=== PATIENT | male | born 1935 | race Caucasian/White ===

== ENCOUNTER 2018-04-18 11:19 | Outpatient (CLI) | payer MEDICARE, OTHER ==
[~2018-04-18] VITALS: Ht 185.4 cm; Wt 99.5 kg
--- NOTE | ~2018-04-18 | HEMODYNAMI ---
PATIENT:GIOVANNI PEPE MEDICAL RECORD: [id number] : 39 LOCATION:[facility] ADMISSION DATE: 04/18/18 Generatedon:04/18/201815:36 Patient name: GIOVANNI PEPE Patient #: [id number] SSN: DO B: 1935 Date of study: 04/18/2018 Page: Of Hemodynamic Procedure Report Patient Data Patient Demographics Procedure consent was obtained First Name: GIOVANNI Gender: Male Last Name: AFSHIN : 1935 Patient #: [id number] Age: 83 year(s) Race: Unknown Additional ID: [id number] Contact details [address]: [address] [place] [address] State: [place] City: [place] Zip code: [address] Admission Admission Data Admission Date: 04/18/2018 Admission Time: 11:19 Admit Source: Other Height (in.): 72 BSA: 2.24 (m2) Height (cm.): 182.88 BMI: 30.38 (kg/m2) Weight (lbs.): 224 Weight (kg.): 101.6 Procedure Procedure Types Cath Procedure Diagnostic Procedure [facility] Coronaries only Aortic Root Angiography Procedure Description Procedure Date Procedure Date: 04/18/2018 Procedure Start Time: 15:15 Procedure End Time: 15:34 Procedure Staff Name Function Tavares Garza MD Performing Physician Nereida Mendoza RN Nurse Evens Griggs RT Monitor Shailesh Hanley RN Nurse Candelario Chowdhury RT Monitor Ira Ennis RT Scrub Procedure Data Cath Procedure Fluoroscopy Diagnostic fluoroscopy Total fluoroscopy Time: 4.6 time: 4.6 min min Diagnostic fluoroscopy Total fluoroscopy dose: 841 dose: 841 mGy mGy Contrast Material Contrast Material Type Amount (ml) Isovue 300 86 Entry Location Entry Primary Successful Side Size Upsize Upsize Entry Closure Succes sful Closure Location (Fr) 1 (Fr) 2 (Fr) Remarks Device Remarks Femoral Right 5 Fr Exoseal artery Estimated blood loss: 5 ml Diagnostic catheters Device Type Used For End Catheter Placement MULTIPACK JL 4.0 5Fr Procedure catheter DIAGNOSTIC JL 5 5Fr Procedure catheter ([id number]) MULTIPACK 3DRC 5Fr Procedure catheter MULTIPACK Pigtail 5 Fr Procedure catheter Procedure Complications No complications Procedure Medications Medication Administration Route Dosage Oxygen NC 2 l/min Heparin Flush Bag added to field 2 bags (1000units/500ml NS) 0.9% NaCl I.V. 100 ml/hr Fentanyl I.V. 50 mcg Versed I.V. 1 mg Fentanyl I.V. 50 mcg Versed I.V. 1 mg Hemodynamics Rest BSA: 2.24 (m2) O2 Consumption: Estimated: 248.38 (ml/min) O2 Consumption indexed : Estimated:110.88 (ml/min/m) Heart Rate: 62 (bpm) Snapshots Pre Cath Intra NCS Post Cath Vital Signs Time Heart Resp SPO2 NIBP (mmHg) Rhythm Pain Sedation Rate (ipm) (%) Status Level (bpm) 15:05:06 57 17 96 156/78(139) NSR 0 (11) 10(A) , No pain 15:09:28 49 16 97 161/89(147) NSR 0 (11) 10(A) , No pain 15:13:50 51 17 100 140/84(107) NSR 0 (11) 10(A) , No pain 15:18:07 55 16 97 158/87(113) NSR 0 (11) 9(A) , No pain 15:22:31 64 16 94 154/86(116) NSR 0 (11) 9(A) , No pain 15:26:49 65 16 95 155/91(136) NSR 0 (11) 9(A) , No pain 15:31:09 62 16 95 147/89(113) NSR 0 (11) 9(A) , No pain 15:33:34 53 17 95 157/88(127) NSR 0 (11) 9(A) , No pain Medications Time Medication Route Dose Verified Delivered Reason Notes Effec tiveness by by 15:08:06 Oxygen NC 2 Tavares Shailesh Per l/min Greg Hanley RN physician 15:08:16 Heparin Flush added 2 Tavares Shailesh used for Bag to bags Greg Hanley fashion photographer (1000units/500ml field NS) 15:08:25 0.9% NaCl I.V. 100 Tavares Shailesh Per ml/hr Greg Hanley RN physician 15:12:35 Fentanyl I.V. 50 Tavares Shailesh for mcg Greg Hanley RN sedation 15:12:42 Versed I.V. 1 mg Tavares Shailesh for Greg Hanley RN sedation 15:15:44 Fentanyl I.V. 50 Tavares Shailesh for mcg Greg Hanley RN sedation 15:15:47 Versed I.V. 1 mg Tavares Shailesh for Greg Hanley RN sedation Procedure Log Time Note 14:20:24 Nereida Mendoza RN sent for patient. Start room use. 14:33:29 Patient Height : 72 inches 14:33:38 Patient Weight : 224 lbs 14:34:14 Admit Source: Other 14:34:20 Diagnostic Cath status Elective 14:34:26 Time tracking: Regular hours (M-F 7:00 - 5:00) 14:34:31 Plan of Care:Hemodynamics will remain stable., Cardiac rhythm will remain stable., Comfort level will be maintained., Respiratory function will remain adequate., Patient/ family verbilizes understanding of procedure., Procedure tolerated without complication., Recovers from procedure without complications.. 14:35:01 Patient received from Pre/Post Procedure Room to CCL 2 Alert and oriented. Tansferred to table in Supine position. 14:35:02 Warm blankets applied, and maria luz hugger turned on for patient comfort. 14:35:03 Correct patient and procedure confirmed by team. 14:35:05 Signed procedure consent form obtained from patient. 14:35:06 ECG and BP/O2 sat monitors applied to patient. 14:35:19 H&P Date Dictated: 04/10/2018 Within 30 days and on chart., H&P Addendum completed by physician on day of procedure. (MUST COMPLETE FOR ALL OUTPATIENTS). 14:35:22 Family in waiting room. 14:35:24 Patient NPO since Midnight. 14:35:28 Was the patient premedicated? Yes 15:03:47 Vital chart was started 15:06:00 Is patient on blood thinner?Yes 15:06:03 ACC The patient was administered the following blood thiners within the last 24 hours: ACCAspirin 15:06:05 Patient diabetic? No. 15:06:10 Snore? Yes 15:06:11 Sleep apnea? Yes 15:06:19 Airway obstruction? No ? 15:06:23 Dentures? Yes in tight 15:06:28 Patient pain scale 0/10 ?. 15:06:35 IV patent on arrival in right forearm with 0.9% NaCl at [facility]. 15:06:39 Lab results completed and on chart. 15:06:43 Right Radial & Right Groin area was prepped with chlora-prep and draped in sterile fashion 15:06:45 Alarms reviewed by R. N. 15:06:45 Sharps counted by scrub and verified by R.N. 15:06:47 Physician paged 15:08:06 Oxygen 2 l/min NC was administered by Shailesh Hanley RN; Per physician; 15:08:16 Heparin Flush Bag (1000units/500ml NS) 2 bags added to field was administered by Shailesh Hanley RN; used for procedure; 15:08:25 0.9% NaCl 100 ml/hr I.V. was administered by Shailesh Hanley RN; Per physician; 15:08:58 Physician arrived 15:08:59 --------ALL STOP TIME OUT------ 15:09:00 Final Timeout: patient, procedure, and site verified with staff and physician. All members of the team are in agreement. 15:09:04 Right groin site verified by team. 15:09:12 Physical assessment completed. ASA score P 2 - A patient with mild systemic disease as per Tavares Garza MD. 15:09:16 Sedation plan: IV Moderate Sedation Medication:Versed, Fentanyl 15:09:21 Use device set Femoral Dx 15:09:23 ACIST Syringe (37193) opened to sterile field. 15:09:23 Bag Decanter (2002S) opened to sterile field. 15:09:23 Medline Cath Pack ([id number]) opened to sterile field. 15:09:24 DIAGNOSTIC WIRE .035 260cm J wire (348699) opened to sterile field. 15:09:26 ACIST Hand Control (42878) opened to sterile field. 15:09:27 ACIST Manifold (14368) opened to sterile field. 15:09:29 DIAGNOSTIC Multipack 5Fr catheter set ([id number]) opened to sterile field. 15:09:30 Tegaderm 4 x 4 (1626W) opened to sterile field. 15:09:32 PERCUTANEOUS ENTRY 19GA needle opened to sterile field. 15:09:34 SHEATH Prelude 5Fr 0.035 ([id number]) opened to sterile field. 15:10:48 Zero performed for pressure channel P1 15:12:35 Fentanyl 50 mcg I.V. was administered by Shailesh Hanley RN; for sedation; 15:12:42 Versed 1 mg I.V. was administered by Shailesh Hanley RN; for sedation; 15:15:42 Procedure started. 15:15:42 Full Disclosure recording started 15:15:44 Fentanyl 50 mcg I.V. was administered by Shailesh Hanley RN; for sedation; 15:15:46 Local anesthetic to right femoral artery with Lidocaine 2% by Tavares Garza MD.INITIAL ACCESS ONLY 15:15:47 Versed 1 mg I.V. was administered by Shailesh Hanley RN; for sedation; 15:16:10 A 5 Fr sheath was inserted into the Right Femoral artery 15:16:37 A MULTIPACK JL 4.0 5Fr catheter was advanced over the wire and used for Procedure. 15:18:23 Catheter removed. unable to cannulate vessel. 15:18:37 A DIAGNOSTIC JL 5 5Fr catheter ([id number]) was advanced over the wire and used for Procedure. 15:19:49 LCA angiography performed. 15:20:31 Baseline sample Acquired. 15:20:38 Rhythm: sinus rhythm 15:22:07 Catheter exchanged over wire. 15:22:14 A MULTIPACK 3DRC 5Fr catheter was advanced over the wire and used for Procedure. 15:22:57 RCA angiography performed. 15:24:31 Catheter exchanged over wire. 15:24:39 A MULTIPACK Pigtail 5 Fr catheter was advanced over the wire and used for Procedure. 15:27:23 Aortic Root visualized 15:27:38 Procedure type changed to Cath procedure, Diagnostic procedure, [facility], Coronaries only, Aortic Root Angiography 15:29:33 EXOSEAL 5Fr (EX500) opened to sterile field. 15:30:40 Catheter removed. 15:31:14 Sheath removed intact; hemostasis achieved with Exoseal to the Right Femoral artery. 15:31:15 Procedure ended.(Physican Out) 15:33:02 Fluoroscopy time 04.60 minutes. 15:33:05 Fluoroscopy dose: 841 mGy 15:33:05 Flurop Dose total: 841 15:33:14 Contrast amount:Isovue 300 86ml. 15:33:16 Sharps counted by scrub and verified by R.N. 15:33:19 Insertion/operative site no bleeding no hematoma. 15:33:21 Post-op/insertion site Right Femoral artery dressed using a 4 x 4 and Tegaderm. 15:33:24 Post right femoral artery:stable, soft, clean and dry 15:33:25 Post Procedure Pulses reassessed and unchanged 15:33:27 Post-procedure physical assessment completed. ASA score P 2 - A patient with mild systemic disease as per Tavares Garza MD. 15:33:29 Post procedure rhythm: unchanged. 15:33:31 Estimated blood loss: 5 ml 15:33:32 Post procedure instruction explained to patient.Patient verbalizes understanding. 15:33:33 Patient needs reinforcement of post procedure teaching. 15:34:04 Procedure and supply charges have been captured, reviewed, submitted and are correct. 15:34:06 Procedure Complication : No complications 15:34:08 Vital chart was stopped 15:34:08 See physician's report for complete and final results. 15:34:11 Report given to Pre/Post Procedure Room. 15:34:13 Patient transfered to Pre/Post Procedure Room with Stretcher. 15:34:15 Procedure ended. 15:34:15 Full Disclosure recording stopped 15:34:20 End room use (Document Last) Device Usage Item Name Manufacture Quantity Catalog Number Hospital Part Current M inimal Lot# / Charge Number Stock Stock Serial# Code ACIST Syringe Acist 1 98864 [id number] 296554 [id number] 2 0 (24840) [employer] Bag Decanter Microtek 1 2001S 257951 91576 304737 5 () [employer] Medline Cath Cardinal 1 [id number] 436828 29636 721838 5 [facility] ([id number]) DIAGNOSTIC WIRE [place] 1 350415 182532 840033 600196 3 0 .035 260cm J wire (297177) ACIST Hand Acist 1 64033 381260 559983 062071 5 Control (64242) [employer] ACIST Manifold Acist 1 93880 886747 334728 607447 5 (88996) [employer] DIAGNOSTIC Cardinal 1 [id number] 476675 02453 830136 3 0 Multipack 5Fr Health catheter set ([id number]) Tegaderm 4 x 4 3M 1 1626W 943509 544844 762621 5 (1626W) PERCUTANEOUS [employer] 1 [id number] 559022 668950 5 ENTRY 19GA needle SHEATH Prelude Merit 1 [id number]-[id number] 854016 900997 959562 5 5Fr 0.035 Medical ([id number]) MULTIPACK JL Cardinal 1 618352 5 4.0 5Fr Health catheter DIAGNOSTIC JL 5 Cardinal 1 [id number] 022389 054646 426517 5 5Fr catheter Health ([id number]) MULTIPACK 3DRC Cardinal 1 255633 5 5Fr catheter Health MULTIPACK Cardinal 1 [id number] 5 Pigtail 5 Fr Health catheter EXOSEAL 5Fr Cardinal 1 EX500 528266 597268 858286 1 0 (EX500) Health Signature Audit [place] Stage Time Signature Unsigned Intra-Procedure 04/18/2018 Candelario Chowdhury 3:35:57 PM RT(R) Signatures Monitor : Evens Griggs RT Signature : Date : Time : Monitor : Candelario Chowdhury RT Signature : Date : Time : [place] [id number] [facility] [address]
[2018-04-18 12:04] VITALS: BP 198/98; Ht 185.4 cm; Wt 99.5 kg
[2018-04-18 12:35] LABS: BASOPHILS 0.2 % (0-2); EOSINOPHILS 3.1 % (0-7); HEMATOCRIT 38.7 % (42.0-54.0); HEMOGLOBIN 13.3 g/dL (13.5-17.5); IMMATURE GRANULOCYTES 0.2 % (0-5); MCH 32.1 pg (26.0-34.0); MCHC 34.4 g/dL (31.0-37.0); MCV 93.5 fL (80.0-100.0); MEAN PLATELET VOLUME 9.1 fL (7.4-10.4); NEUTROPHILS 62.5 % (40-80); PLATELET COUNT 229 10x3/uL (130-400); RBC 4.14 10x6/uL (4.20-6.10); RDW 13.2 % (11.5-14.5); WBC 5.6 10x3/uL (4.8-10.8)
[2018-04-18 12:39] LABS: CALC OSMOLALITY 273 mosm/kg (275-300); CALCIUM 9.1 mg/dL (8.5-10.1); CARBON DIOXIDE 31.3 mmol/L (21.0-32.0); CHLORIDE - SERUM 104 mmol/L (98-107); CREATININE - SERUM 0.9 mg/dL (0.6-1.3); GLUCOSE 91 mg/dL (74-106); POTASSIUM - SERUM 3.8 mmol/L (3.5-5.1); SODIUM 137 mmol/L (136-145); UREA NITROGEN 13 mg/dL (7-18); eGFR NON AFRICAN AMERICAN 86 mL/min (90-120)
== END 2018-04-18 17:46 | disposition home or self-care (01) ==
LOC: D.CATH 11:19
PROVIDERS: Internal Medicine Cardiovascular Disease
DX: I25.119 Atherosclerotic heart disease of native coronary artery with unspecified angina pectoris (principal); I35.1 Nonrheumatic aortic (valve) insufficiency; Z01.812 Encounter for preprocedural laboratory examination

== ENCOUNTER → 2019-04-03 09:03 | Outpatient (CLI) | payer MEDICARE, OTHER ==
[2018-04-18 12:04] VITALS: BMI 28.9
== END | disposition home or self-care (01) ==
LOC: D.HCCARDIO 09:00
PROVIDERS: ATTEND Internal Medicine Cardiovascular Disease
DX: I25.10 Atherosclerotic heart disease of native coronary artery without angina pectoris (principal)